=== PATIENT | female | born 1955 | race Caucasian/White ===

== ENCOUNTER 2022-07-30 12:25 | Outpatient (REF) | payer MEDICARE, OTHER, SELFPAY ==
--- NOTE | ~2022-07-30 | XR_ITS ---
EXAMINATION: XR ANKLE, RIGHT CLINICAL INFORMATION: S93.401A - Sprain of unspecified ligament of right ankle, initial encounter COMPARISON: None TECHNIQUE: AP, lateral, and mortise views of the right ankle. FINDINGS: Bony density is normal. The malleoli are intact and the ankle mortise is symmetric. There is no visible ankle capsular effusion. The retrocalcaneal recess is preserved. The subtalar joint is unremarkable. The AP view shows subtle linear ossification adjacent to the lateral hindfoot, 2.5 cm distal to the lateral malleolus. This could represent a cortical avulsion hindfoot from nonspecific ligament pull. No fracture fragment seen on the other 2 projections. There is a broad-based exostosis at the distal dorsal talus, not of acute clinical significance. XR/XR ankle RT min 3V IMPRESSION: -Suspicious for fine linear cortical avulsion lateral aspect hindfoot, on one view. -Malleoli are intact. Ankle mortise is symmetric. No visible ankle capsular effusion.
== END 2022-07-30 12:26 | disposition home or self-care (01) ==
LOC: HO.HMGCX 12:25
PROVIDERS: PCP Internal Medicine; Visit Provider Internal Medicine
DX: S93.401A Sprain of unspecified ligament of right ankle, initial encounter (principal)
CPT/HCPCS: 73610

== ENCOUNTER 2023-03-17 15:29 | Outpatient (REF) | payer MEDICARE, OTHER, SELFPAY ==
--- NOTE | ~2023-03-17 | XR_ITS ---
EXAMINATION: XR KNEE, LEFT CLINICAL INFORMATION: Sprain COMPARISON: None available. TECHNIQUE: Four views of the left knee. FINDINGS: Bone alignment is normal. No fracture or dislocation. Normal joint spaces. No significant joint effusion. Soft tissue swelling overlying the patella. XR/XR knee LT 4V IMPRESSION: No fracture or dislocation. Soft tissue swelling over the patella.
== END 2023-03-17 15:30 | disposition home or self-care (01) ==
LOC: HO.HMGCX 15:29
PROVIDERS: Visit Provider Internal Medicine
DX: S83.92XA Sprain of unspecified site of left knee, initial encounter (principal); X58.XXXA Exposure to other specified factors, initial encounter; Y93.9 Activity, unspecified; Y92.9 Unspecified place or not applicable; Y99.9 Unspecified external cause status
CPT/HCPCS: 73564

== ENCOUNTER 2023-05-28 11:55 | Outpatient (AMB) | payer MEDICARE, OTHER, SELFPAY ==
--- NOTE | 2023-05-28 12:06 | MHC.OFFWIV ---
Intake Vital Signs 05/28/23 12:10 BP 114/72 Blood Pressure Location Rt brachial Position Sitting Pulse 78 Pulse Source Pulse Oximeter Temp 98.5 F Temp Source Temporal Artery Scan Pulse Oximetry (%) 98 Oxygen Delivery Method Room Air Intake Visit Reasons: EP hornet sting (lobby) Intake Note: Patient here because she was stung 3 times by hornets about 1 1/2 week ago. she states the other 2 went away but this one she is worried about is located on her right lower leg, she has some redness around it and has a small hole in it, she has been keeping it clean. Patient Tobacco Use Status: Never used Tobacco Allergies No Known Allergies Allergy (Verified 05/28/23 12:10) Do you need a note to return to daycare/school/sports/work: No HPI EP hornet sting (lobby) HPI Details Patient is a 68-year-old female comes to the walk-in clinic complaining of persistent swelling and discomfort from insect bite about 10 days ago, after being stung 3 times in total by a hornet. She denies fever chills, fatigue, nausea vomiting or diarrhea, or other systemic signs of infection. No underlying immuno compromising issues. She has been keeping the area clean covered and dry, although she has been cleaning it with hydrogen peroxide. She states that it started to become hole, with surrounding black to the area. She removed the overlying tissue herself with tweezers. [facility] Social History Patient Tobacco Use Status: Never used Tobacco Review of Systems Const All systems reviewed & are unremarkable except as noted in HPI and below Physical Exam Vital Signs: Last Vital Signs Temp 98.5 F 05/28/23 12:10 Pulse 78 05/28/23 12:10 BP 114/72 05/28/23 12:10 Pulse Ox 98 05/28/23 12:10 Oxygen Delivery Method Room Air 05/28/23 12:10 Const General: cooperative, healthy appearing, comfortable, no acute distress, alert, awake, Physically active and well groomed; No diaphoretic, ill appearing, intoxicated appearing, poor hygiene or tired appearing Nutritional Appearance: average body habitus Limitations: no limitations Cardio Rate: regular rate Rhythm: regular rhythm Skin Other: Approximately 5 mm lesion to the right medial calf area, ulcerating appearance with erythema at the edges. Leaking some serosanguineous fluid. No induration or fluctuance, or streaking. Psych Appearance: grossly normal Mental Status: mental status grossly normal Speech and movement: Normal speech and movement present Affect: normal affect Attitude: cooperative Thought process: Normal thought process present Insight: Good insight present (Psych) Judgement: Good judgement present (Psych) Assessment & Plan Assessment & Plan (1) Insect sting: Code(s): T63.481A - Toxic effect of venom of other arthropod, accidental (unintentional), initial encounter Plan: Patient with insect bite that has not healed, no allergic reaction initially. Looks like it is starting to become cellulitic in nature, with an ulcerating appearance. There is no underlying abscess palpable. It is possible that the stinger was left inside, but no foreign body visible. Advised that she soak the area 3 times a day in Epsom salts. Will write her for Bactrim for 10 day course. Culture taken, pending results. She knows to keep area clean covered and dry, and changed at least daily. 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 She will follow up if symptoms persist or worsen. (2) Cellulitis: Code(s): L03.90 - Cellulitis, unspecified Orders: Orders Routine Culture w Gram Stain 05/28/23 L03.90 - Cellulitis, unspecified Medications: New sulfamethoxazole-trimethoprim 800-160 mg (Bactrim DS) 1 tab PO BID 10 days 20 tabs 0RF Coding Level of Care Code Est Pt Level 4 (30474) Diagnoses Insect sting T63.481A Cellulitis L03.90
[2023-05-28 12:10] VITALS: BP 114/72; PULSE 78; TEMP 36.9; O2SAT 98
== END 2023-05-28 13:27 | disposition home or self-care (01) ==
PROVIDERS: PCP Internal Medicine; Visit Provider Physician Assistant Medical
DX: T63.481A Toxic effect of venom of other arthropod, accidental (unintentional), initial encounter (principal); L03.90 Cellulitis, unspecified
CPT/HCPCS: 99214

== ENCOUNTER 2023-05-28 17:45 | Outpatient (REF) | payer MEDICARE, OTHER, SELFPAY | END 2023-05-28 17:46 | disposition home or self-care (01) | LOC: HO.LNP 17:45 | PROVIDERS: Visit Provider Physician Assistant Medical | DX: L03.90 Cellulitis, unspecified (principal) | CPT/HCPCS: 87070; 87205 ==

== ENCOUNTER 2024-03-07 14:28 | Outpatient (AMB) | payer MEDICARE, OTHER, SELFPAY ==
--- NOTE | 2024-03-07 14:56 | MHC.OFFWIV ---
Intake Vital Signs 03/07/24 14:58 Height 5 ft 6 in Weight 134 lb BMI 21.6 BP 112/60 Blood Pressure Location Rt brachial Position Sitting Pulse 70 Pulse Source Pulse Oximeter Temp 97.9 F Temp Source Oral Pulse Oximetry (%) 98 Oxygen Delivery Method Room Air Intake Visit Reasons: EST/ left leg lump (lobby) Intake Note: pt is here left leg lump, wants a second opinion to rule out a dvt Patient Tobacco Use Status: Never used Tobacco Allergies No Known Allergies Allergy (Verified 03/07/24 14:57) Do you need a note to return to daycare/school/sports/work: No HPI EST/ left leg lump (lobby) HPI Details 69 yr old female presents to the office for a sick visit. 10 days ago, pt hit her left leg against a chair. She has a bump on the barrios which she would like to have examined. Painful in the past few days. [facility] Social History Patient Tobacco Use Status: Never used Tobacco Physical Exam Vital Signs: Last Vital Signs Temp 97.9 F 03/07/24 14:58 Pulse 70 03/07/24 14:58 BP 112/60 03/07/24 14:58 Pulse Ox 98 03/07/24 14:58 Oxygen Delivery Method Room Air 03/07/24 14:58 BMI result Body Mass Index 21.6 Extrem Other: Right leg:Swelling on the barrios, tender to touch. Skin over the swelling is not bruised. Swelling is approx 3 cm in size. Assessment & Plan Assessment & Plan (1) Hematoma of lower leg: Code(s): S80.10XA - Contusion of unspecified lower leg, initial encounter Plan: Reassurance. Keep leg elevated. if sx do not improve to follow up here. Coding Level of Care Code Est Pt Level 3 (53953) Diagnoses Hematoma of lower leg S80.10XA
[2024-03-07 14:58] VITALS: BP 112/60; PULSE 70; TEMP 36.6; O2SAT 98; BMI 21.6
== END 2024-03-07 15:35 | disposition home or self-care (01) ==
PROVIDERS: PCP Internal Medicine; Visit Provider Internal Medicine
DX: S80.10XA Contusion of unspecified lower leg, initial encounter (principal)
CPT/HCPCS: 99213